=== PATIENT | male | born 1950 | race Caucasian/White ===

== ENCOUNTER 2019-04-13 20:41 | Emergency (ER) | payer BC ==
[2019-04-13 21:11] VITALS: BP 126/70
[2019-04-13] MEDS ORDERED: Cephalexin CAP* 500 MG PO ONE (21:30)
--- NOTE | 2019-04-13 21:33 | UC ---
Skin Complaint HPI - HPI Summary HPI Summary: 68-year-old male comes in with a chief complaint of puncture wound to the left hand. 3 days ago he accidentally stabbed himself with his utility knife into the palmar aspect of the left thumb. It bled for a while but it got better with direct pressure. Over the last day or so it's become more painful and some of the pain comes proximally to the base of the thumb. No weakness or numbness. No drainage no erythema. - History of Current Complaint Chief Complaint: UCUpperExtremity Time Seen by Provider: 04/13/19 21:06 Stated Complaint: PUNCTURE WOUND Pain Intensity: 2 - Allergy/Home Medications Allergies/Adverse Reactions: Allergies Allergy/AdvReac Type Severity Reaction Status Date / Time No Known Allergies Allergy Verified 04/13/19 21:11 Home Medications: Home Medications Aspirin 81 mg CHEW TAB* 81 mg PO DAILY 04/13/19 [History Confirmed 04/13/19] Evolocumab [Repatha Pushtronex] 420 mg INJ MONTHLY 04/13/19 [History Confirmed 04/13/19] Metoprolol Tartrate TAB* [Lopressor TAB*] 50 mg PO DAILY 04/13/19 [History Confirmed 04/13/19] PMH/Surg Hx/FS Hx/Imm Hx Previously Healthy: Yes Cardiovascular History: Hypertension, Myocardial Infarction - Surgical History Surgical History: Yes Surgery Procedure, Year, and Place: Cataract surgery 2000. CARDIAC STENT - Family History Known Family History: Positive: Non-Contributory - Social History Alcohol Use: Weekly Substance Use Type: None Smoking Status (MU): Never Smoked Tobacco - Immunization History Most Recent Influenza Vaccination: aug 2014 Most Recent Tetanus Shot: 2011 Most Recent Pneumonia Vaccination: 2011 Review of Systems All Other Systems Reviewed And Are Negative: Yes Constitutional: Positive: Negative Skin: Positive: Other - SEE HPI Eyes: Positive: Negative ENT: Positive: Negative Respiratory: Positive: Negative Cardiovascular: Positive: Negative Gastrointestinal: Positive: Negative Motor: Positive: Negative Neurovascular: Positive: Negative Musculoskeletal: Positive: Negative Neurological: Positive: Negative Psychological: Positive: Negative Is Patient Immunocompromised?: No Physical Exam Triage Information Reviewed: Yes Appearance: Well-Appearing, No Pain Distress, Well-Nourished Vital Signs: Initial Vital Signs Temp 98.1 F 04/13/19 21:04 Pulse 58 05/15/19 21:04 Resp 12 04/13/19 21:04 BP 126/70 04/13/19 21:04 Pulse Ox 98 04/13/19 21:04 Vital Signs Reviewed: Yes Eye Exam: Normal Eyes: Positive: Conjunctiva Clear Neck: Positive: Supple Respiratory: Positive: No respiratory distress Musculoskeletal: Positive: Strength Intact, ROM Intact, Other: - MILD TENDERNESS TO PALPATION PALMAR ASPECT OF LEFT THUMB. THUMB FROM, NL CAP REFILL, NO SENSATION DEFICIT. Neurological: Positive: Alert, Muscle Tone Normal Psychological Exam: Normal Psychological: Positive: Age Appropriate Behavior Skin: Positive: Other - 1CM CLOSED LACERATION WITH ESCHAR PALMAR ASPECT OF LEFT THUMB. MINIMAL ERYTHEMA. NO DRAINAGE. Course/Dx - Course Course Of Treatment: At this time it's not obvious that there is an infection. However the area is mildly tender to palpation. There is no drainage is not hot to touch there is full range of motion. Due to the possibility of a deeper infection we will treat with Keflex. Patient has been using Neosporin was stopped that and switch over to mupirocin. If he is not improving or have him follow-up with orthopedic hands. I did let him know that if he got worse with redness of the arm fevers he needed to get further evaluation and treatment in the emergency department. - Diagnoses Provider Diagnosis: Puncture wound of left hand Discharge - Sign-Out/Discharge Documenting (check all that apply): Patient Departure All imaging exams completed and their final reports reviewed: No Studies - Discharge Plan Condition: Stable Disposition: HOME Prescriptions: Cephalexin CAP* [Keflex CAP*] 500 mg PO QID #39 cap Mupirocin 1 applic TOPICAL BID #22 gm Patient Education Materials: Puncture Wound (ED) Referrals: Tyler Dunn MD [Primary Care Provider] - Additional Instructions: FOLLOW UP WITH DR NOLAN, ORTHOPEDIC HAND SURGEON, IF NOT COMPLETELY IMPROVED. GO TO THE EMERGENCY DEPARTMENT IF YOUR CONDITION WORSENS OR ANY QUESTIONS OR CONCERNS. - Billing Disposition and Condition Condition: STABLE Disposition: Home
== END 2019-04-13 21:43 | disposition home or self-care (01) ==
LOC: UCEAST 20:41
DX: S61.431A Puncture wound without foreign body of right hand, initial encounter (principal); I10 Essential (primary) hypertension; I25.2 Old myocardial infarction; W26.0XXA Contact with knife, initial encounter; Y92.9 Unspecified place or not applicable
CPT/HCPCS: 99212; A9270-GY; G0463